=== PATIENT | female | born 1985 | race Caucasian/White ===

== ENCOUNTER → 2016-10-03 | Outpatient (CLI) | payer OTHER | LOC: KOH-I 09-26 08:00 | DX: R10.11 Right upper quadrant pain (principal); K76.0 Fatty (change of) liver, not elsewhere classified; K80.20 Calculus of gallbladder without cholecystitis without obstruction; N20.0 Calculus of kidney; K83.8 Other specified diseases of biliary tract | CPT/HCPCS: 76705 ==

== ENCOUNTER 2020-12-05 13:33 | Emergency (ER) | payer OTHER ==
[~2020-12-05 13:33] MED LIST: BACTRIM DS TAB1 EACH PO; BACTROBAN OINT22 GM TOP; ELIMITE 5% CREA60 GM TOP; FLEXERIL 10 MG10 MG PO; IBU800 MG PO; IBUPROFEN600 MG PO; IBUPROFEN800 MG PO; KEFLEX CAP 500500 MG PO; PREDNISONE10 MG PO; TORADOL 10 MG T10 MG PO; VISTARIL25 MG PO; ZANAFLEX4 MG PO
[2020-12-05 15:27] LABS: HEMOGLOBIN 13.2 gm/dl (12.3-15.3); RED BLOOD COUNT 5.03 M/UL (4.00-5.10); WHITE BLOOD COUNT 6.6 K/UL (4.5-11.0)
[2020-12-05 15:48] LABS: BUN/CREATININE RATIO 13 (0-10)
== END 2020-12-05 16:02 | disposition home or self-care (01) ==
LOC: ER1 13:33
PROVIDERS: Physician Assistant Medical
DX: F15.90 Other stimulant use, unspecified, uncomplicated (principal); Z20.822 Contact with and (suspected) exposure to COVID-19; F17.210 Nicotine dependence, cigarettes, uncomplicated; Z90.49 Acquired absence of other specified parts of digestive tract
CPT/HCPCS: 0240U; 80053; 81001; 84703; 85025; 99283

== ENCOUNTER 2021-07-10 23:05 | Emergency (ER) | payer OTHER ==
[2021-07-11 00:39] LABS: HEMOGLOBIN 14.8 gm/dl (12.3-15.3); RED BLOOD COUNT 5.12 M/UL (4.00-5.10); WHITE BLOOD COUNT 13.5 K/UL (4.5-11.0)
[2021-07-11 01:12] LABS: BUN/CREATININE RATIO 14 (0-10)
[2021-07-11] MEDS ORDERED: METRONIDAZOLE500 MG PO (03:33)
[2021-07-11] MEDS ORDERED: ZOFRAN ODT 4 MG4 MG PO (03:50)
[2021-07-11 04:32] LABS: ADENOVIRUS F 40/41 Not Detected (Negative); ASTROVIRUS Not Detected (Negative); CAMPYLOBACTER Not Detected (Negative); CLOSTRIDIUM DIFFICILE TOX A/B Not Detected (Negative); CRYPTOSPORIDIUM Not Detected (Negative); E.COLI 0157 Not Detected (Negative); ENTAMOEBA HISTOLYTICA Not Detected (Negative); ENTEROAGGREGATIVE E.COLI (EAEC Not Detected (Negative); ENTEROPATHOGENIC E.COLI (EPEC) Not Detected (Negative); ENTEROTOXIGENIC E.COLI (ETEC) Not Detected (Negative); GIARDIA LAMBLIA Not Detected (Negative); NOROVIRUS GI/GII Not Detected (Negative); PLESIOMONAS SHIGELLOIDES Not Detected (Negative); ROTOVIRUS A Not Detected (Negative); SALMONELLA Not Detected (Negative); SAPOVIRUS Not Detected (Negative); SHIG/ENTEROINVAS.ECOLI (EIEC) Not Detected (Negative); SHIGA-LIK TOX.PRO.E.COLI (STEC Not Detected (Negative); VIBRIO Not Detected (Negative); VIBRIO CHOLERAE Not Detected (Negative); YERSINIA ENTEROCOLITICA Not Detected (Negative)
== END 2021-07-11 03:59 | disposition home or self-care (01) ==
LOC: ER1 23:05
PROVIDERS: Family Medicine
DX: K52.9 Noninfective gastroenteritis and colitis, unspecified (principal); Z20.822 Contact with and (suspected) exposure to COVID-19
CPT/HCPCS: 80053; 81001; 82272; 83605; 83690; 85025; 87507; 96374; 99284; J2405; Q9967; U0002